=== PATIENT | male | born 1985 | race Caucasian/White ===

== ENCOUNTER 2018-05-26 12:40 | Inpatient (IN) | payer OTHER ==
[2018-05-26 17:04] VITALS: BMI 32.1
--- NOTE | 2018-05-26 17:39 | HP ---
"CIWA Score Nausea/Vomitin-Mild Nausea/No Vomiting (0.228) Muscle Tremors: 6 Anxiety: 4-Mod. Anxious/Guarded Agitation: 6 Paroxysmal Sweats: 3 Orientation: 0-Oriented Tacttile Disturbances: 0-None Auditory Disturbances: 0-None Visual Disturbances: 0-None Headache: 0-None Present CIWA-Ar Total Score: 20 - Admission Criteria [facility] Guidelines: Admission for Medically Managed Detox: Requires at least one of the followin. CIWA greater than 12 2. Seizures within the past 24 hours 3. Delirium tremens within the past 24 hours 4. Hallucinations within the past 24 hours 5. Acute intervention needed for co occurring medical disorder 6. Acute intervention needed for co occurring psychiatric disorder 7. Severe withdrawal that cannot be handled at a lower level of care (continued vomiting, continued diarrhea, abnormal vital signs) requiring intravenous medication and/or fluids 8. Patient presents the following: CIWA greater than 12 Admission Criteria Met: Admission criteria met Admission ROS S - [facility] Chief Complaint: Here for alcohol withdrawal. Allergies/Adverse Reactions: Allergies Allergy/AdvReac Type Severity Reaction Status Date / Time No Known Allergies Allergy Verified 05/26/18 16:46 History of Present Illness: Alcohol use since age 15, states has been excessive (24 hrs daily) since age 26. Marijuana use since age 15. Nicotine use since age 15. No significant length of sobriety. Hx seizures - last 01/04, and multiple blackouts. Hx fatty liver disease otherwise denies other significant PMH/PSH. Hx: Depressiion - denies current thoughts of harming self or others. Search Terms: JONEL ANTON, 1985 Search Date: 05/26/2018 05:50:22 PM The Drug Utilization Report below displays all of the controlled substance prescriptions, if any, that your patient has filled in the last twelve months. The information displayed on this report is compiled from pharmacy submissions to the Department, and accurately reflects the information as submitted by the pharmacies. This report was requested by: Subha Esteves | Reference #: [id number] Others' Prescriptions Patient Name: Jonel Anton Date: 1985 Address: [address] [place] [address] Sex: Male Rx Written Rx Dispensed Drug Quantity Days Supply Prescriber Name 02/11/2018 02/11/2018 chlordiazepoxide 25 mg capsule 4 2 Angela Castanon COPY READER Exam Limitations: No Limitations - Ebola screening Have you traveled outside of the country in the last 21 days: No Have you had contact with anyone from an Ebola affected area: No Have you been sick,other than usual withdrawal symptoms: No Do you have a fever: No - Review of Systems Constitutional: Changes in sleep (Difficulty falling asleep) EENT: reports: Dental Problems (Broken teeth. Dental pain.) Respiratory: reports: No Symptoms reported Cardiac: reports: Irregular Heart Rate (Associated w/ anxiety) GI: reports: Nausea : reports: No Symptoms Reported Musculoskeletal: reports: Joint Pain ((R) knee pain - scheduled for knee surgery , 06/02/18, for torn meniscus.) Integumentary: reports: No Symptoms Reported Neuro: reports: Tremors Endocrine: reports: No Symptoms Reported Hematology: reports: No Symptoms Reported Psychiatric: reports: Judgement Intact, Orientated x3, Agitated, Anxious ( Extremely anxious), Depressed (Denies thoughts of harming self or others.) Patient History - Patient Medical History Hx Asthma: No Hx Chronic Obstructive Pulmonary Disease (COPD): No Hx Cardiac Disorders: No Hx Hypertension: No Hx Seizures: Yes (alcohol related x2-last episode was in 12/2017) Hx Diabetes: No Hx Gastrointestinal Disorders: Yes (acid reflux) Hx Genitourinary Disorders: No Hx Sexually Transmitted Disorders: No Hx Renal Disease (ESRD): No Hx Depression: Yes Hx Suicide Attempt: Yes (j[place] 03[place]2017) Hx Schizophrenia: No - Patient Surgical History Past Surgical History: Yes Hx Neurologic Surgery: No Hx Cataract Extraction: No Hx Cardiac Surgery: No Hx Lung Surgery: No Hx Breast Surgery: No Hx Breast Biopsy: No Hx Abdominal Surgery: No Hx Appendectomy: No Hx Cholecystectomy: No Hx Genitourinary Surgery: No Hx Section: No Hx Orthopedic Surgery: Yes (removal of benign tumor in 2003/toprn meniscud, right knee in 2004) Anesthesia Reaction: No - PPD History Previous Implant?: Yes Documented Results: Negative w/o proof Implanted On Prior [facility] Admission?: No PPD to be Administered?: Yes - Smoking Cessation Smoking history: Current every day smoker Have you smoked in the past 12 months: Yes Aproximately how many cigarettes per day: 30 Hx Chewing Tobacco Use: No Initiated information on smoking cessation: Yes 'Breaking Loose' booklet given: 05/26/18 - Substance & Tx. History Hx Alcohol Use: Yes Hx Substance Use: Yes Substance Use Type: Alcohol, Marijuana Hx Substance Use Treatment: Yes (1 detox attempt, and attempts on own. ) - Substances Abused Alcohol-vodka/4loko Route: Oral Frequency: Daily Amount used: 1/2 gal./1 case Age of first use: 15 Date of Last Use: 05/26/18 Marijuana Route: Smoking Frequency: 1-2 times per week Amount used: $10 Age of first use: 15 Date of Last Use: 05/25/18 Admission Physical Exam S - Vital Signs Vital Signs: Vital Signs - 24 hr 05/26/18 16:50 Temperature 96.2 F L Pulse Rate 90 Respiratory 20 Rate Blood Pressure 138/89 - Physical General Appearance: Yes: Nourished, Appropriately Dressed, Alcohol on Breath, Tremorous, Sweating, Anxious, Other (Tearful) HEENTM: Yes: EOMI (jerking of eyes at lateral gaze), Hearing grossly Normal, SONYA, Other (Some cracked/broken teeth.) Respiratory: Yes: Chest Non-Tender, Lungs Clear, Normal Breath Sounds, No Respiratory Distress Neck: Yes: No masses,lesions,Nodules, Supple Breast: Yes: Breast Exam Deferred Cardiology: Yes: Regular Rhythm, Regular Rate, S1, S2 Abdominal: Yes: Non Tender, Soft, Increased Bowel Sounds Genitourinary: Yes: Within Normal Limits Back: Yes: Normal Inspection Musculoskeletal: Yes: full range of Motion, Gait Steady, Other (Crepitus (R) knee w/ mild swelling and tenderness. FROM) Extremities: Yes: Normal Capillary Refill, Normal Inspection, Normal Range of Motion, Non-Tender, Tremors (Tremors of hands at rest and which increase whern arms lifited) Neurological: Yes: inspector advanced composite II-XII NML intact (jerking of eyes at lateral gaze) Integumentary: Yes: Normal Color, Dry (Decreased skin turgor), Warm, Mottled ( Moist, mottled, whittened skin w/ cracks at bases opf toes.) Lymphatic: Yes: Within Normal Limits - Diagnostic (1) Alcohol dependence with withdrawal Current Visit: Yes Status: Acute Qualifiers: Complication of substance-induced condition: uncomplicated Qualified Code(s ): F10.230 - Alcohol dependence with withdrawal, uncomplicated (2) Nystagmus Current Visit: Yes Status: Acute (3) Tinea pedis Current Visit: Yes Status: Chronic Qualifiers: Laterality: bilateral Qualified Code(s): B35.3 - Tinea pedis (4) Dehydration Current Visit: Yes Status: Chronic (5) Poor dentition Current Visit: Yes Status: Chronic (6) Personal history of other diseases of the digestive system Current Visit: No Status: Chronic Comment: States has fatty liver disease (7) Cannabis dependence, uncomplicated Current Visit: Yes Status: Chronic Cleared for Admission [facility] - Detox or Rehab [facility] Level of Care: Medically Managed Detox Regimen/Protocol: Librium [facility] Breath Alcohol Content Breath Alcohol Content: 0.228 Urine Drug Screen - Results Drug Screen Negative: No Urine Drug Screen Results: THC-Marijuana"
[2018-05-26] MEDS ORDERED: chlordiazePOXIDE HCL 25 MG CAPSULE PO PRN (18:16)
[2018-05-26] MEDS ORDERED: MAG HYDROX/AL HYDROX/SIMETH 30 ML UNIT-DOSE CUP PO PRN (18:16)
[2018-05-26] MEDS ORDERED: MENTHOL/PHENOL 1 EACH UD MM PRN (18:16)
[2018-05-26] MEDS ORDERED: LOPERAMIDE HCL 2 MG CAPSULE PO PRN (18:16)
[2018-05-26] MEDS ORDERED: MAGNESIUM CITRATE 300 ML BOTTLE PO PRN (18:16)
[2018-05-26] MEDS ORDERED: MAGNESIUM HYDROX 2400MG/30ML ORAL SUSPENSION 30 ML CUP PO PRN (18:16)
[2018-05-26] MEDS ORDERED: ONDANSETRON *ODT* 4 MG TABLET SL PRN (18:18)
[2018-05-26] MEDS ORDERED: chlordiazePOXIDE HCL 25 MG CAPSULE PO ONE (19:15)
[2018-05-26] MEDS: PANTOPRAZOLE 20 MG TABLET (FP) PO SCH (19:45)
[2018-05-26] MEDS: NICOTINE POLACRILEX 4 MG GUM BC PRN (20:07)
[2018-05-26] MEDS: chlordiazePOXIDE HCL 25 MG CAPSULE PO SCH (22:18)
[2018-05-26] MEDS: THIAMINE HCL 100 MG TABLET (FP) PO SCH (22:18)
[2018-05-26] MEDS: TOLNAFTATE 1% POWDER 45 GM POW TP SCH (22:18)
[2018-05-26] MEDS: MELATONIN 5 MG TABLETS PO PRN (22:18)
[2018-05-27] MEDS: chlordiazePOXIDE HCL 25 MG CAPSULE PO SCH ×4 (05:27→22:22)
[2018-05-27] MEDS: PRENATAL VITAMINS W/ FOLIC ACID TABLET (FP) PO SCH (10:25)
[2018-05-27] MEDS: PANTOPRAZOLE 20 MG TABLET (FP) PO SCH (10:25)
[2018-05-27] MEDS: NICOTINE 21 MG/24 HOURS TOPICAL PATCH TD SCH (10:25)
[2018-05-27] MEDS: TOLNAFTATE 1% POWDER 45 GM POW TP SCH ×2 (10:26→22:23)
--- NOTE | 2018-05-27 10:30 | PN ---
S CIWA - CIWA Score Nausea/Vomitin-No Nausea/No Vomiting Muscle Tremors: 4-Moderate,w/Arms Extend Anxiety: 5 Agitation: 4-Moderately Restless Paroxysmal Sweats: 1-Minimal Palms Moist Orientation: 0-Oriented Tacttile Disturbances: 0-None Auditory Disturbances: 0-None Visual Disturbances: 0-None Headache: 0-None Present CIWA-Ar Total Score: 14 [facility] Progress Note (SOAP) Subjective: C/O MODERATE TO SEVERE W/S. ANXIETY, IRRITABILITY, TREMORS, DECREASED APPETITE. Objective: 05/27/18 10:29 Vital Signs 05/27/18 05/27/18 05/27/18 02:30 03:00 03:30 Temperature Pulse Rate 74 65 Respiratory 18 18 18 Rate Blood Pressure 05/27/18 05/27/18 05/27/18 04:00 04:30 05:00 Temperature Pulse Rate 66 68 72 Respiratory 18 18 18 Rate Blood Pressure 05/27/18 05/27/18 05/27/18 05:30 06:00 06:13 Temperature 97 F L Pulse Rate 75 72 72 Respiratory 18 18 18 Rate Blood Pressure 120/73 05/27/18 05/27/18 05/27/18 06:30 07:00 07:30 Temperature Pulse Rate 72 70 73 Respiratory 18 18 18 Rate Blood Pressure 05/27/18 05/27/18 05/27/18 08:00 08:30 09:37 Temperature 96.8 F L Pulse Rate 72 81 81 Respiratory 18 18 18 Rate Blood Pressure 136/84 LABS PENDING Assessment: 05/27/18 10:30 WITHDRAWAL SX Plan: CONTINUE DETOX LIBRIUM 50 MG PO X 1 AT 2 PM TODAY INCREASE PO FLUIDS
[2018-05-27 11:13] LABS: HEMATOCRIT 47.5 % (35.4-49); HEMOGLOBIN 15.7 GM/dL (11.7-16.9); MCH 34.1 pg (25.7-33.7); MCHC 33.2 g/dl (32.0-35.9); MEAN CELL VOLUME 102.9 fl (80-96); MEAN PLT VOLUME 9.2 fl (7.5-11.1); PLATELET COUNT 106 K/MM3 (134-434); RBC 4.61 M/mm3 (4.00-5.60); RDW 13.6 % (11.9-15.9); WHITE BLOOD COUNT 3.2 K/mm3 (4.0-10.0)
[2018-05-27 11:59] LABS: ALBUMIN 3.3 g/dl (3.4-5.0); ALK PHOS 138 U/L (45-117); ANION GAP 11 MMOL/L (8-16); BLOOD UREA NITROGEN 4 mg/dL (7-18); CALCIUM 8.4 mg/dL (8.5-10.1); CHLORIDE 99 mmol/L (98-107); CO2 29 mmol/L (21-32); CREATININE 0.8 mg/dL (0.55-1.3); GLUCOSE,RANDOM 67 mg/dL (74-106); POTASSIUM 3.3 mmol/L (3.5-5.1); SGOT/AST 417 U/L (15-37); SGPT/ALT 284 U/L (13-61); SODIUM 139 mmol/L (136-145); TOT PROT 6.6 g/dl (6.4-8.2)
[2018-05-27] MEDS ORDERED: chlordiazePOXIDE HCL 25 MG CAPSULE PO ONE (14:00)
[2018-05-27] MEDS: BENZOCAINE 20 % GEL TUBE MM PRN (17:26)
[2018-05-27] MEDS: IBUPROFEN 400 MG TABLET (FP) PO PRN (17:27)
[2018-05-27] MEDS: THIAMINE HCL 100 MG TABLET (FP) PO SCH (22:22)
[2018-05-27] MEDS: MELATONIN 5 MG TABLETS PO PRN (22:23)
[2018-05-28] MEDS: chlordiazePOXIDE HCL 25 MG CAPSULE PO SCH ×3 (05:58→17:28)
[2018-05-28] MEDS: NICOTINE 21 MG/24 HOURS TOPICAL PATCH TD SCH (10:33)
[2018-05-28] MEDS: PRENATAL VITAMINS W/ FOLIC ACID TABLET (FP) PO SCH (10:33)
[2018-05-28] MEDS: PANTOPRAZOLE 20 MG TABLET (FP) PO SCH (10:33)
[2018-05-28] MEDS: TOLNAFTATE 1% POWDER 45 GM POW TP SCH ×2 (10:33→22:39)
--- NOTE | 2018-05-28 13:04 | PN ---
[facility] CIWA - CIWA Score Nausea/Vomitin-Mild Nausea/No Vomiting Muscle Tremors: 3 Anxiety: 3 Agitation: 3 Paroxysmal Sweats: 3 Orientation: 0-Oriented Tacttile Disturbances: 0-None Auditory Disturbances: 0-None Visual Disturbances: 0-None Headache: 0-None Present CIWA-Ar Total Score: 13 [facility] Progress Note (SOAP) Subjective: Tremor, sweating. Patient requesting to be discharged tomorrow stating he has to be at work on Tuesday at 7am. Patient agreed to adjust detox protocol. Patient aware that discharge will be in the early evening hours most likely after 5pm. Objective: 05/28/18 13:01 Last Vital Signs Temp Pulse Resp BP Pulse Ox 97.1 F L 57 L 16 115/78 05/28/18 09:52 05/28/18 09:52 05/28/18 09:52 05/28/18 09:52 Laboratory Tests 05/27/18 05/27/18 05/27/18 07:50 07:50 07:50 WBC 3.2 L RBC 4.61 Hgb 15.7 Hct 47.5 MCV 102.9 H MCH 34.1 H MCHC 33.2 RDW 13.6 Plt Count 106 L MPV 9.2 Sodium 139 Potassium 3.3 L Chloride 99 Carbon Dioxide 29 Anion Gap 11 BUN 4 L Creatinine 0.8 Creat Clearance w eGFR > 60 Random Glucose 67 L Calcium 8.4 L Total Bilirubin 2.0 H AST 417 H ALT 284 H Alkaline Phosphatase 138 H Total Protein 6.6 Albumin 3.3 L RPR Titer Nonreactive Labs reviewed: plt 106, K 3.3, total bilirubin 2.0, AST/ALT 417/284 Assessment: 05/28/18 13:04 Withdrawal symptoms Noted with mild thrombocytopenia, elevated LFTs (total bilirubin, AST, ALT) and hypokalemia Plan: Continue detox Encouraged PO water intake Mild thrombocytopenia: could be r/t alcohol dependence; encouraged abstinence, follow up with PCP for monitoring Elevated LFTs (total bilirubin, AST, ALT): repeat LFTs Hypokalemia: K Dur 40Meq PO x 2 doses (at least 4 hours apart), repeat serum K+ level in AM
[2018-05-28] MEDS ORDERED: POTASSIUM CHLORIDE TABS 20 MEQ TABLET.ER (FP) PO ONE ×2 (13:45→21:00)
[2018-05-28] MEDS: IBUPROFEN 400 MG TABLET (FP) PO PRN ×2 (17:28→22:14)
[2018-05-28] MEDS: NICOTINE POLACRILEX 4 MG GUM BC PRN (18:10)
[2018-05-28 20:38] LABS: URINE APPEARANCE CLEAR; URINE BILIRUBIN NEGATIVE (<2.0 mg/dL); URINE COLOR YELLOW; URINE GLUCOSE (UA) NEGATIVE (NEGATIVE); URINE KETONE NEGATIVE (NEGATIVE); URINE LEUK ESTERASE NEGATIVE (NEGATIVE); URINE NITRITE NEGATIVE (NEGATIVE); URINE PROTEIN NEGATIVE (NEGATIVE); URINE UROBILINOGEN 4.0 E.U/dl mg/dL (0.2-1.0)
[2018-05-28] MEDS: chlordiazePOXIDE 5 MG CAPSULE PO SCH (22:13)
[2018-05-28] MEDS: THIAMINE HCL 100 MG TABLET (FP) PO SCH (22:14)
[2018-05-28] MEDS: MELATONIN 5 MG TABLETS PO PRN (22:15)
[2018-05-28] MEDS: BENZOCAINE 20 % GEL TUBE MM PRN (22:39)
[2018-05-29] MEDS: chlordiazePOXIDE 5 MG CAPSULE PO SCH (05:12)
[2018-05-29] MEDS: IBUPROFEN 400 MG TABLET (FP) PO PRN (06:02)
[2018-05-29 09:15] VITALS: BP 104/58; PULSE 57; TEMP 96.9
[2018-05-29 10:29] LABS: BILIRUBIN,TOTAL 2.8 mg/dL (0.2-1); POTASSIUM 4.1 mmol/L (3.5-5.1)
[2018-05-29] MEDS ORDERED: chlordiazePOXIDE HCL 10 MG CAPSULE PO SCH ×2 (11:00→23:00)
--- NOTE | 2018-05-29 11:11 | DS ---
[facility] Detox Discharge Summary Admission Date: 05/26/18 Discharge Date: 05/29/18 - History Present History: Alcohol Dependence Additional Comments: 32 years old male admitted on 05/26/18 for alcohol withdrawal sx completed alcohol detox regimen tolerated well alert no acute distress aftercare [facility] - Physical Exam Results Vital Signs: Vital Signs Temperature 96.9 F L 05/29/18 09:14 Pulse Rate 57 L 05/29/18 09:14 Respiratory Rate 18 05/29/18 09:14 Blood Pressure 104/58 L 05/29/18 09:14 O2 Sat by Pulse Oximetry (%) Pertinent Admission Physical Exam Findings: alcohol withdrawal sx Laboratory Last Values WBC 3.2 K/mm3 (4.0-10.0) L 05/27/18 07:50 RBC 4.61 M/mm3 (4.00-5.60) 05/27/18 07:50 Hgb 15.7 GM/dL (11.7-16.9) 05/27/18 07:50 Hct 47.5 % (35.4-49) 05/27/18 07:50 MCV 102.9 fl (80-96) H 05/27/18 07:50 MCH 34.1 pg (25.7-33.7) H 05/27/18 07:50 MCHC 33.2 g/dl (32.0-35.9) 05/27/18 07:50 RDW 13.6 % (11.9-15.9) 05/27/18 07:50 Plt Count 106 K/MM3 (134-434) L 05/27/18 07:50 MPV 9.2 fl (7.5-11.1) 05/27/18 07:50 Sodium 139 mmol/L (136-145) 05/27/18 07:50 Potassium 4.1 mmol/L (3.5-5.1) 05/29/18 07:00 Chloride 99 mmol/L (98-107) 05/27/18 07:50 Carbon Dioxide 29 mmol/L (21-32) 05/27/18 07:50 Anion Gap 11 MMOL/L (8-16) 05/27/18 07:50 BUN 4 mg/dL (7-18) L 05/27/18 07:50 Creatinine 0.8 mg/dL (0.55-1.3) 05/27/18 07:50 Creat Clearance w eGFR > 60 (>60) 05/27/18 07:50 Random Glucose 67 mg/dL (74-106) L 05/27/18 07:50 Calcium 8.4 mg/dL (8.5-10.1) L 05/27/18 07:50 Total Bilirubin 2.8 mg/dL (0.2-1) H 05/29/18 07:00 AST 134 U/L (15-37) H 05/29/18 07:00 ALT 187 U/L (13-61) H 05/29/18 07:00 Alkaline Phosphatase 138 U/L (45-117) H 05/27/18 07:50 Total Protein 6.6 g/dl (6.4-8.2) 05/27/18 07:50 Albumin 3.3 g/dl (3.4-5.0) L 05/27/18 07:50 Urine Color Yellow 05/28/18 20:09 Urine Appearance Clear 05/28/18 20:09 Urine pH 7.0 (5.0-8.0) 05/28/18 20:09 Ur Specific [place] 1.003 (1.010-1.035) L 05/28/18 20:09 Urine Protein Negative (NEGATIVE) 05/28/18 20:09 Urine Glucose (UA) Negative (NEGATIVE) 05/28/18 20:09 Urine Ketones Negative (NEGATIVE) 05/28/18 20:09 Urine Blood Negative (NEGATIVE) 05/28/18 20:09 Urine Nitrite Negative (NEGATIVE) 05/28/18 20:09 Urine Bilirubin Negative (<2.0 mg/dL) 05/28/18 20:09 Urine Urobilinogen 4.0 e.u/dl mg/dL (0.2-1.0) 05/28/18 20:09 Ur Leukocyte Esterase Negative (NEGATIVE) 05/28/18 20:09 RPR Titer Nonreactive (NONREACTIVE) 05/27/18 07:50 lab noted discuss alcohol related liver enzyme elevation patient agrees to follow up with [facility] for low wbc and liver enzyme level - Treatment Hospital Course: Detox Protocol Followed, Detoxed Safely, Responded well, Discharged Condition Good, Rehab Referral Accepted Patient has Accepted a Rehab Referral to: [facility] - Medication Discharge Medications: Ambulatory Orders Bupropion HCl [Wellbutrin -] 100 mg PO BID 05/26/18 - Diagnosis (1) Alcohol dependence with withdrawal Status: Acute Qualifiers: Complication of substance-induced condition: uncomplicated Qualified Code(s ): F10.230 - Alcohol dependence with withdrawal, uncomplicated (2) GERD (gastroesophageal reflux disease) Status: Chronic Qualifiers: Esophagitis presence: without esophagitis Qualified Code(s): K21.9 - Gastro -esophageal reflux disease without esophagitis (3) Nicotine dependence Status: Acute Qualifiers: Nicotine product type: cigarettes Substance use status: in withdrawal Qualified Code(s): F17.213 - Nicotine dependence, cigarettes, with withdrawal - AMA Did Patient Leave Against Medical Advice: No
== END 2018-05-29 09:55 | disposition home or self-care (01) | DRG 775 ==
LOC: YASAS 12:40 → Y3N 18:50
PROC: HZ2ZZZZ Detoxification Services for Substance Abuse Treatment (ICD-10-PCS; principal; 2018-05-26)
DX: F10.230 Alcohol dependence with withdrawal, uncomplicated (principal); F12.20 Cannabis dependence, uncomplicated; F17.213 Nicotine dependence, cigarettes, with withdrawal; G40.909 Epilepsy, unspecified, not intractable, without status epilepticus; K21.9 Gastro-esophageal reflux disease without esophagitis; E87.6 Hypokalemia; D69.6 Thrombocytopenia, unspecified; E86.0 Dehydration; B35.3 Tinea pedis; K70.0 Alcoholic fatty liver; R94.5 Abnormal results of liver function studies; R74.8 Abnormal levels of other serum enzymes; H55.00 Unspecified nystagmus
CPT/HCPCS: 36415; 80053; 81003; 82247; 84132; 84450; 84460; 85027; 86593